=== PATIENT | female | born 1945 | race Caucasian/White ===

== ENCOUNTER → 2017-03-07 | Outpatient (CLI) | payer BC, MEDICARE ==
[2011-11-13 06:20] VITALS: BP 108/55
[~2017-03-07] MED LIST: CALCIUM1 CAP PO; CRESTOR10 MG PO; EPA FISH OIL1000 MG PO; PREMARIN 0.60.625 MG PO; ST. JOSEPH81 M2 PO
== END ==
LOC: MAMMO 08:22
DX: Z12.31 Encounter for screening mammogram for malignant neoplasm of breast (principal)
CPT/HCPCS: G0202

== ENCOUNTER → 2018-03-17 | Outpatient (CLI) | payer MEDICARE, OTHER ==
[2011-11-13 06:20] VITALS: BP 108/55
[2018-03-17 14:28] LABS: HEMATOCRIT 39.9 % (37.0-47.0); HEMOGLOBIN 13.1 g/dL (12.5-16.0); MEAN PLATELET VOLUME 9.5 fl (7.4-10.4); RED BLOOD COUNT 4.23 M/mm3 (4.10-5.30); RED CELL DISTRIBUTION WIDTH 12.2 % (11.5-14.5); WHITE BLOOD COUNT 11.2 K/mm3 (4.8-10.8)
[2018-03-17 14:34] LABS: ALBUMIN 4.1 g/dL (3.5-5.0); BUN/CREATININE RATIO 11.5 (6.0-26.0); CALCIUM 10.4 mg/dL (8.4-10.2); POTASSIUM 4.4 mmol/L (3.6-5.0); TOTAL BILIRUBIN 0.6 mg/dL (0.2-1.3); TOTAL PROTEIN 7.2 g/dL (6.3-8.2)
== END ==
LOC: LAB 14:01
PROVIDERS: Family Medicine
DX: Z00.00 Encounter for general adult medical examination without abnormal findings (principal); E78.5 Hyperlipidemia, unspecified; Z88.2 Allergy status to sulfonamides

== ENCOUNTER → 2018-03-25 | Outpatient (CLI) | payer MEDICARE, OTHER ==
[2011-11-13 06:20] VITALS: BP 108/55
[2018-03-25 14:01] LABS: EOS % 0.4 % (1.0-5.0); HEMATOCRIT 43.2 % (37.0-47.0); HEMOGLOBIN 14.5 g/dL (12.5-16.0); LYMPH# 3.4 (1.50-4.00); MEAN CELL VOLUME 90 fl (78-100); MEAN CORPUSCULAR HEMOGLOBIN 30 pg (27-31); MEAN CORPUSCULAR HGB CONC 34 g/dL (33-37); MEAN PLATELET VOLUME 9.3 fl (7.4-10.4); MONO # 0.5 (0.20-0.80); NEU # 4.9 (1.40-6.50); PLATELET COUNT 400 K/mm3 (130-400); RED CELL DISTRIBUTION WIDTH 12.1 % (11.5-14.5); WHITE BLOOD COUNT 8.9 K/mm3 (4.8-10.8)
[2018-03-25 14:30] LABS: URINE APPEARANCE CLEAR; URINE BILIRUBIN NEGATIVE (NEGATIVE); URINE BLOOD TRACE (NEGATIVE); URINE COLOR YELLOW; URINE GLUCOSE NEGATIVE (NEGATIVE); URINE KETONE NEGATIVE (NEGATIVE); URINE LEUKOCYTE ESTERASE TRACE (NEGATIVE); URINE NITRATE NEGATIVE (NEGATIVE); URINE PROTEIN(semi-quant) TRACE mg/dL (NEGATIVE); URINE UROBILINOGEN NORMAL (NORMAL)
[2018-03-25 14:52] LABS: ALBUMIN 4.7 g/dL (3.5-5.0); BUN/CREATININE RATIO 13.3 (6.0-26.0); CALCIUM 9.8 mg/dL (8.4-10.2); POTASSIUM 4.8 mmol/L (3.6-5.0); TOTAL BILIRUBIN 0.6 mg/dL (0.2-1.3); TOTAL PROTEIN 7.9 g/dL (6.3-8.2)
== END ==
LOC: LAB 13:44
PROVIDERS: Nurse Practitioner Family
DX: R10.9 Unspecified abdominal pain (principal); R30.0 Dysuria; R53.81 Other malaise; G25.89 Other specified extrapyramidal and movement disorders; R11.2 Nausea with vomiting, unspecified; R19.7 Diarrhea, unspecified; Z88.2 Allergy status to sulfonamides

== ENCOUNTER → 2018-03-31 | Outpatient (CLI) | payer MEDICARE, OTHER ==
[2011-11-13 06:20] VITALS: BP 108/55
== END ==
LOC: RAD 16:54
DX: N32.9 Bladder disorder, unspecified (principal)

== ENCOUNTER → 2018-04-09 | Outpatient (CLI) | payer MEDICARE, OTHER ==
[2011-11-13 06:20] VITALS: BP 108/55
== END ==
LOC: MAMMO 03-27 08:30
DX: Z12.31 Encounter for screening mammogram for malignant neoplasm of breast (principal)

== ENCOUNTER → 2018-08-18 | Outpatient (CLI) | payer MEDICARE, OTHER ==
[2011-11-13 06:20] VITALS: BP 108/55
[2018-08-18 17:10] LABS: EOS # 0.1 (0.04-0.40); EOS % 1.2 % (1.0-5.0); HEMATOCRIT 41.1 % (37.0-47.0); HEMOGLOBIN 13.6 g/dL (12.5-16.0); MEAN CELL VOLUME 96 fl (78-100); MEAN CORPUSCULAR HEMOGLOBIN 32 pg (27-31); MEAN CORPUSCULAR HGB CONC 33 g/dL (33-37); MEAN PLATELET VOLUME 9.1 fl (7.4-10.4); MONO # 0.6 (0.20-0.80); NEU # 6.4 (1.40-6.50); PLATELET COUNT 401 K/mm3 (130-400); RED CELL DISTRIBUTION WIDTH 12.1 % (11.5-14.5); WHITE BLOOD COUNT 11.8 K/mm3 (4.8-10.8)
[2018-08-18 17:13] LABS: ALBUMIN 4.1 g/dL (3.5-5.0); CALCIUM 9.4 mg/dL (8.4-10.2); TOTAL BILIRUBIN 0.5 mg/dL (0.2-1.3); TOTAL PROTEIN 7.1 g/dL (6.3-8.2)
[2018-08-18 17:34] LABS: LYMPH# 4.7 (1.50-4.00)
== END ==
LOC: LAB 16:35
PROVIDERS: Family Medicine
DX: D89.9 Disorder involving the immune mechanism, unspecified (principal); R19.7 Diarrhea, unspecified

== ENCOUNTER → 2018-09-10 | Outpatient (CLI) | payer MEDICARE, OTHER ==
[2011-11-13 06:20] VITALS: BP 108/55
== END ==
LOC: LAB 07:42
DX: R19.7 Diarrhea, unspecified (principal)

== ENCOUNTER → 2019-02-18 | Outpatient (CLI) | payer MEDICARE, OTHER ==
[2011-11-13 06:20] VITALS: BP 108/55
[2019-02-18 14:04] LABS: EOS # 0.1 (0.04-0.40); EOS % 0.9 % (1.0-5.0); HEMATOCRIT 41.2 % (37.0-47.0); HEMOGLOBIN 13.4 g/dL (12.5-16.0); MEAN CELL VOLUME 94 fl (78-100); MEAN CORPUSCULAR HEMOGLOBIN 31 pg (27-31); MEAN CORPUSCULAR HGB CONC 33 g/dL (33-37); MEAN PLATELET VOLUME 8.9 fl (7.4-10.4); MONO # 0.5 (0.20-0.80); PLATELET COUNT 376 K/mm3 (130-400); RED BLOOD COUNT 4.37 M/mm3 (4.10-5.30); RED CELL DISTRIBUTION WIDTH 12.1 % (11.5-14.5); WHITE BLOOD COUNT 9.6 K/mm3 (4.8-10.8)
[2019-02-18 14:16] LABS: ALBUMIN 4.1 g/dL (3.5-5.0); CALCIUM 9.6 mg/dL (8.4-10.2); POTASSIUM 4.9 mmol/L (3.6-5.0); TOTAL BILIRUBIN 0.6 mg/dL (0.2-1.3); TOTAL PROTEIN 7.1 g/dL (6.3-8.2)
== END ==
LOC: RAD 13:52
PROVIDERS: Family Medicine
DX: D89.9 Disorder involving the immune mechanism, unspecified (principal); J84.10 Pulmonary fibrosis, unspecified

== ENCOUNTER → 2019-09-22 | Outpatient (CLI) | payer MEDICARE, OTHER ==
[2011-11-13 06:20] VITALS: BP 108/55
[2019-09-22 10:14] LABS: EOS % 0.4 % (1.0-5.0); HEMATOCRIT 41.9 % (37.0-47.0); HEMOGLOBIN 13.5 g/dL (12.5-16.0); LYMPH# 2.8 (1.50-4.00); MEAN CELL VOLUME 95 fl (78-100); MEAN CORPUSCULAR HEMOGLOBIN 31 pg (27-31); MEAN CORPUSCULAR HGB CONC 32 g/dL (33-37); MEAN PLATELET VOLUME 9.2 fl (7.4-10.4); MONO # 0.5 (0.20-0.80); PLATELET COUNT 402 K/mm3 (130-400); RED BLOOD COUNT 4.42 M/mm3 (4.10-5.30); RED CELL DISTRIBUTION WIDTH 12.1 % (11.5-14.5); WHITE BLOOD COUNT 9.3 K/mm3 (4.8-10.8)
[2019-09-22 10:19] LABS: ALBUMIN 4.3 g/dL (3.4-4.8); POTASSIUM 4.1 mmol/L (3.5-5.1)
[2019-09-22 10:20] LABS: CALCIUM 10.3 mg/dL (8.3-10.5)
[2019-09-22 10:22] LABS: TOTAL PROTEIN 7.4 g/dL (6.2-8.1)
[2019-09-22 10:23] LABS: TOTAL BILIRUBIN 0.7 mg/dL (0.2-1.2)
== END ==
LOC: LAB 09:38
PROVIDERS: Family Medicine
DX: R19.7 Diarrhea, unspecified (principal)

== ENCOUNTER → 2019-09-23 | Outpatient (CLI) | payer MEDICARE, OTHER ==
[2011-11-13 06:20] VITALS: BP 108/55
== END ==
LOC: RAD 09:30
DX: N28.1 Cyst of kidney, acquired (principal); I70.0 Atherosclerosis of aorta; R91.1 Solitary pulmonary nodule
CPT/HCPCS: Q9967

== ENCOUNTER → 2019-09-24 | Outpatient (CLI) | payer MEDICARE, OTHER ==
[2011-11-13 06:20] VITALS: BP 108/55
== END ==
LOC: LAB 14:06
DX: R19.7 Diarrhea, unspecified (principal)

== ENCOUNTER → 2019-10-02 | Outpatient (CLI) | payer MEDICARE, OTHER ==
[2011-11-13 06:20] VITALS: BP 108/55
[2019-10-02 07:44] LABS: EOS # 0.1 (0.04-0.40); EOS % 0.7 % (1.0-5.0); HEMATOCRIT 39.9 % (37.0-47.0); HEMOGLOBIN 12.9 g/dL (12.5-16.0); LYMPH# 2.6 (1.50-4.00); MEAN CELL VOLUME 95 fl (78-100); MEAN CORPUSCULAR HEMOGLOBIN 31 pg (27-31); MEAN CORPUSCULAR HGB CONC 32 g/dL (33-37); MEAN PLATELET VOLUME 9.1 fl (7.4-10.4); MONO # 0.6 (0.20-0.80); NEU # 5.7 (1.40-6.50); PLATELET COUNT 402 K/mm3 (130-400); RED BLOOD COUNT 4.19 M/mm3 (4.10-5.30); RED CELL DISTRIBUTION WIDTH 12.1 % (11.5-14.5)
[2019-10-02 10:18] LABS: ERYTHROCYTE SEDIMENTATION RATE 42 mm/hr (0-30)
== END ==
LOC: RAD 07:26
PROVIDERS: Nurse Practitioner Family
DX: M19.072 Primary osteoarthritis, left ankle and foot (principal)

== ENCOUNTER → 2019-12-08 | Outpatient (CLI) | payer MEDICARE, OTHER ==
[2011-11-13 06:20] VITALS: BP 108/55
== END ==
LOC: LAB 11:32
DX: K52.9 Noninfective gastroenteritis and colitis, unspecified (principal)

== ENCOUNTER → 2019-12-14 | Outpatient (CLI) | payer MEDICARE, OTHER ==
[2011-11-13 06:20] VITALS: BP 108/55
== END ==
LOC: LAB 10:18
DX: K52.9 Noninfective gastroenteritis and colitis, unspecified (principal); R11.0 Nausea

== ENCOUNTER → 2020-01-14 | Day surgery (SDC) | payer MEDICARE, OTHER ==
[2011-11-13 06:20] VITALS: BP 108/55
== END ==
LOC: MSO 06:58
DX: K52.9 Noninfective gastroenteritis and colitis, unspecified (principal); K21.9 Gastro-esophageal reflux disease without esophagitis; F17.210 Nicotine dependence, cigarettes, uncomplicated; Z86.010 Personal history of colon polyps; Z88.2 Allergy status to sulfonamides; Z79.52 Long term (current) use of systemic steroids; Z85.51 Personal history of malignant neoplasm of bladder; Z85.42 Personal history of malignant neoplasm of other parts of uterus; Z90.710 Acquired absence of both cervix and uterus; Z90.49 Acquired absence of other specified parts of digestive tract; Z92.21 Personal history of antineoplastic chemotherapy
CPT/HCPCS: 00813; J2704; J3010; J7120

== ENCOUNTER → 2020-02-08 | Outpatient (CLI) | payer MEDICARE, OTHER ==
[2011-11-13 06:20] VITALS: BP 108/55
[2020-02-08 14:10] LABS: EOS # 0.1 (0.04-0.40); EOS % 1.2 % (1.0-5.0); HEMATOCRIT 35.3 % (37.0-47.0); HEMOGLOBIN 11.2 g/dL (12.5-16.0); LYMPH# 3.1 (1.50-4.00); MEAN CELL VOLUME 95 fl (78-100); MEAN CORPUSCULAR HEMOGLOBIN 30 pg (27-31); MEAN CORPUSCULAR HGB CONC 32 g/dL (33-37); MEAN PLATELET VOLUME 8.9 fl (7.4-10.4); MONO # 0.6 (0.20-0.80); NEU # 7.2 (1.40-6.50); PLATELET COUNT 426 K/mm3 (130-400); RED BLOOD COUNT 3.73 M/mm3 (4.10-5.30); RED CELL DISTRIBUTION WIDTH 12.8 % (11.5-14.5); WHITE BLOOD COUNT 11.1 K/mm3 (4.8-10.8)
[2020-02-08 14:15] LABS: ALBUMIN 3.7 g/dL (3.4-4.8); POTASSIUM 4.3 mmol/L (3.5-5.1)
[2020-02-08 14:16] LABS: CALCIUM 9.5 mg/dL (8.3-10.5)
[2020-02-08 14:17] LABS: TOTAL PROTEIN 6.3 g/dL (6.2-8.1)
[2020-02-08 14:19] LABS: TOTAL BILIRUBIN 0.4 mg/dL (0.2-1.2)
[2020-02-08 15:18] LABS: ERYTHROCYTE SEDIMENTATION RATE 57 mm/hr (0-30)
[2020-02-08 15:26] LABS: D-DIMER 1.39 mg/L FEU (0.15-0.50)
== END ==
LOC: LAB 13:46
PROVIDERS: Family Medicine
DX: R60.9 Edema, unspecified (principal)

== ENCOUNTER → 2020-03-31 | Outpatient (CLI) | payer MEDICARE, OTHER ==
[2011-11-13 06:20] VITALS: BP 108/55
== END ==
LOC: MAMMO 08:30
DX: Z12.31 Encounter for screening mammogram for malignant neoplasm of breast (principal)

== ENCOUNTER → 2020-04-15 | Outpatient (CLI) | payer MEDICARE, OTHER ==
[2011-11-13 06:20] VITALS: BP 108/55
[2020-04-15 15:46] LABS: EOS # 0.1 (0.04-0.40); EOS % 0.9 % (1.0-5.0); HEMATOCRIT 34.9 % (37.0-47.0); LYMPH# 2.7 (1.50-4.00); MEAN CELL VOLUME 94 fl (78-100); MEAN CORPUSCULAR HEMOGLOBIN 30 pg (27-31); MEAN CORPUSCULAR HGB CONC 32 g/dL (33-37); MEAN PLATELET VOLUME 8.7 fl (7.4-10.4); MONO # 0.6 (0.20-0.80); NEU # 4.7 (1.40-6.50); PLATELET COUNT 346 K/mm3 (130-400); RED CELL DISTRIBUTION WIDTH 12.6 % (11.5-14.5)
[2020-04-15 15:59] LABS: ALBUMIN 3.7 g/dL (3.4-4.8); POTASSIUM 4.8 mmol/L (3.5-5.1)
[2020-04-15 16:01] LABS: CALCIUM 9.4 mg/dL (8.3-10.5)
[2020-04-15 16:02] LABS: TOTAL PROTEIN 5.9 g/dL (6.2-8.1)
[2020-04-15 16:04] LABS: TOTAL BILIRUBIN 0.5 mg/dL (0.2-1.2)
== END ==
LOC: LAB 15:26
PROVIDERS: Family Medicine
DX: R60.9 Edema, unspecified (principal)

== ENCOUNTER → 2020-04-19 | Outpatient (CLI) | payer MEDICARE, OTHER ==
[2011-11-13 06:20] VITALS: BP 108/55
[~2020-04-19] MED LIST changes: +EFFER-K20 MEQ PO; +MELOXICAM7.5 MG PO; +OMEPRAZOLE40 MG PO; +ONDANSETRON HYDR4 MG PO; +SIMVASTATIN40 M1 PO
== END ==
LOC: RAD 16:33
DX: R60.0 Localized edema (principal)

== ENCOUNTER 2020-04-25 17:42 | Observation (INO) | payer MEDICARE, OTHER ==
[~2020-04-25] VITALS: Ht 172.7 cm; Wt 58.2 kg
[~2020-04-25 17:42] MED LIST changes: -EFFER-K20 MEQ PO; -MELOXICAM7.5 MG PO; -OMEPRAZOLE40 MG PO; -ONDANSETRON HYDR4 MG PO; -SIMVASTATIN40 M1 PO
[2020-04-25 18:14] LABS: EOS % 0.1 % (1.0-5.0); HEMATOCRIT 39.9 % (37.0-47.0); HEMOGLOBIN 13.5 g/dL (12.5-16.0); LYMPH# 2.4 (1.50-4.00); MEAN CELL VOLUME 88 fl (78-100); MEAN CORPUSCULAR HEMOGLOBIN 30 pg (27-31); MEAN CORPUSCULAR HGB CONC 34 g/dL (33-37); MEAN PLATELET VOLUME 9.2 fl (7.4-10.4); MONO # 0.6 (0.20-0.80); NEU # 5.8 (1.40-6.50); PLATELET COUNT 457 K/mm3 (130-400); RED BLOOD COUNT 4.52 M/mm3 (4.10-5.30); RED CELL DISTRIBUTION WIDTH 12.1 % (11.5-14.5); WHITE BLOOD COUNT 8.9 K/mm3 (4.8-10.8)
[2020-04-25 18:26] LABS: ALBUMIN 4.2 g/dL (3.4-4.8); POTASSIUM 3.6 mmol/L (3.5-5.1)
[2020-04-25 18:27] LABS: CALCIUM 10.2 mg/dL (8.3-10.5)
[2020-04-25 18:30] LABS: TOTAL BILIRUBIN 0.7 mg/dL (0.2-1.2)
[2020-04-25] MEDS ORDERED: SIMVASTATIN40 M1 PO (19:25)
[2020-04-25 19:27] VITALS: BP 117/59
[2020-04-25 21:28] VITALS: BP 127/65
[2020-04-25 21:29] LABS: URINE APPEARANCE CLEAR; URINE COLOR YELLOW
[2020-04-25 21:30] LABS: URINE BILIRUBIN NEGATIVE (NEGATIVE); URINE BLOOD TRACE (NEGATIVE); URINE GLUCOSE NEGATIVE (NEGATIVE); URINE KETONE 1+ (NEGATIVE); URINE LEUKOCYTE ESTERASE TRACE (NEGATIVE); URINE NITRATE NEGATIVE (NEGATIVE); URINE PROTEIN(semi-quant) NEGATIVE (NEGATIVE); URINE UROBILINOGEN NORMAL (NORMAL)
[2020-04-25 21:42] VITALS: BP 127/65
[2020-04-25] MEDS ORDERED: OMEPRAZOLE40 MG PO (23:26)
[2020-04-25] MEDS ORDERED: ONDANSETRON HYDR4 MG PO (23:28)
[2020-04-25] MEDS ORDERED: MELOXICAM7.5 MG PO (23:29)
[2020-04-26 01:21] VITALS: BP 147/66
[2020-04-26 05:45] VITALS: BP 146/67
[2020-04-26 06:04] LABS: EOS % 0.4 % (1.0-5.0); HEMATOCRIT 37.1 % (37.0-47.0); HEMOGLOBIN 12.5 g/dL (12.5-16.0); LYMPH# 2.7 (1.50-4.00); MEAN CELL VOLUME 89 fl (78-100); MEAN CORPUSCULAR HEMOGLOBIN 30 pg (27-31); MEAN CORPUSCULAR HGB CONC 34 g/dL (33-37); MEAN PLATELET VOLUME 9.1 fl (7.4-10.4); MONO # 0.7 (0.20-0.80); NEU # 4.9 (1.40-6.50); PLATELET COUNT 429 K/mm3 (130-400); RED BLOOD COUNT 4.19 M/mm3 (4.10-5.30); RED CELL DISTRIBUTION WIDTH 12.2 % (11.5-14.5); WHITE BLOOD COUNT 8.4 K/mm3 (4.8-10.8)
[2020-04-26 06:07] LABS: ALBUMIN 3.9 g/dL (3.4-4.8)
[2020-04-26 06:08] LABS: POTASSIUM 3.4 mmol/L (3.5-5.1)
[2020-04-26 06:09] LABS: CALCIUM 9.3 mg/dL (8.3-10.5)
[2020-04-26 06:10] LABS: TOTAL PROTEIN 6.2 g/dL (6.2-8.1)
[2020-04-26 06:12] LABS: TOTAL BILIRUBIN 0.7 mg/dL (0.2-1.2)
[2020-04-26 09:45] VITALS: BP 146/79
[2020-04-26] MEDS ORDERED: ONDANSETRON HYDR4 MG PO (11:56)
[2020-04-26] MEDS ORDERED: EFFER-K20 MEQ PO (11:57)
== END 2020-04-26 13:05 | disposition home or self-care (01) ==
LOC: ED 17:42 → MED/SURG 20:39
PROVIDERS: Nurse Practitioner Primary Care; ADMIT Nurse Practitioner
DX: E87.1 Hypo-osmolality and hyponatremia (principal); E86.0 Dehydration; R19.7 Diarrhea, unspecified; R11.2 Nausea with vomiting, unspecified; R10.9 Unspecified abdominal pain; N28.1 Cyst of kidney, acquired; J44.9 Chronic obstructive pulmonary disease, unspecified; Z79.899 Other long term (current) drug therapy; Z87.891 Personal history of nicotine dependence; Z79.82 Long term (current) use of aspirin; Z88.2 Allergy status to sulfonamides
CPT/HCPCS: G0378; J2405; J7030; Q9967

== ENCOUNTER → 2020-05-10 | Outpatient (CLI) | payer MEDICARE, OTHER ==
[2020-04-26 09:45] VITALS: BP 146/79
[~2020-05-10] MED LIST changes: +EFFER-K20 MEQ PO; +K-TAB20 MEQ PO; +MELOXICAM7.5 MG PO; +METOLAZONE5 MG PO; +NAPROXEN375 MG PO; +OMEPRAZOLE40 MG PO; +ONDANSETRON HYDR4 MG PO; +POTASSIUM CHLO20 ME4 PO; +SIMVASTATIN40 M1 PO; +WELLBUTRIN SR150 M2 PO
[2020-05-10 12:53] LABS: EOS # 0.1 (0.04-0.40); EOS % 0.8 % (1.0-5.0); HEMATOCRIT 34.7 % (37.0-47.0); HEMOGLOBIN 11.8 g/dL (12.5-16.0); LYMPH# 3.3 (1.50-4.00); MEAN CELL VOLUME 87 fl (78-100); MEAN CORPUSCULAR HEMOGLOBIN 30 pg (27-31); MEAN CORPUSCULAR HGB CONC 34 g/dL (33-37); MEAN PLATELET VOLUME 8.6 fl (7.4-10.4); MONO # 0.5 (0.20-0.80); NEU # 6.6 (1.40-6.50); PLATELET COUNT 364 K/mm3 (130-400); RED BLOOD COUNT 3.98 M/mm3 (4.10-5.30); RED CELL DISTRIBUTION WIDTH 11.8 % (11.5-14.5); WHITE BLOOD COUNT 10.5 K/mm3 (4.8-10.8)
[2020-05-10 12:59] LABS: ALBUMIN 3.9 g/dL (3.4-4.8)
[2020-05-10 13:00] LABS: POTASSIUM 3.2 mmol/L (3.5-5.1)
[2020-05-10 13:01] LABS: CALCIUM 9.5 mg/dL (8.3-10.5)
[2020-05-10 13:02] LABS: TOTAL PROTEIN 6.1 g/dL (6.2-8.1)
[2020-05-10 13:04] LABS: TOTAL BILIRUBIN 0.8 mg/dL (0.2-1.2)
== END ==
LOC: LAB 12:34
PROVIDERS: Family Medicine
DX: R60.9 Edema, unspecified (principal)

== ENCOUNTER 2020-05-11 11:59 | Emergency (ER) | payer MEDICARE, OTHER ==
[~2020-05-11] VITALS: Wt 61.6 kg
[~2020-05-11 11:59] MED LIST changes: -K-TAB20 MEQ PO; -METOLAZONE5 MG PO; -NAPROXEN375 MG PO; -POTASSIUM CHLO20 ME4 PO; -WELLBUTRIN SR150 M2 PO
[2020-05-11] MEDS ORDERED: METOLAZONE5 MG PO (12:36)
[2020-05-11] MEDS ORDERED: NAPROXEN375 MG PO (12:37)
[2020-05-11] MEDS ORDERED: WELLBUTRIN SR150 M2 PO (12:37)
[2020-05-11 12:54] LABS: EOS % 0.4 % (1.0-5.0); HEMATOCRIT 33.1 % (37.0-47.0); HEMOGLOBIN 11.2 g/dL (12.5-16.0); LYMPH# 2.4 (1.50-4.00); MEAN CELL VOLUME 87 fl (78-100); MEAN CORPUSCULAR HEMOGLOBIN 30 pg (27-31); MEAN CORPUSCULAR HGB CONC 34 g/dL (33-37); MEAN PLATELET VOLUME 8.2 fl (7.4-10.4); MONO # 0.6 (0.20-0.80); NEU # 6.9 (1.40-6.50); PLATELET COUNT 337 K/mm3 (130-400); RED BLOOD COUNT 3.79 M/mm3 (4.10-5.30); RED CELL DISTRIBUTION WIDTH 11.8 % (11.5-14.5); WHITE BLOOD COUNT 9.9 K/mm3 (4.8-10.8)
[2020-05-11 13:01] LABS: SODIUM 125 mmol/L (136-145)
[2020-05-11 13:02] LABS: CALCIUM 8.7 mg/dL (8.3-10.5); GLUCOSE 105 mg/dL (65-105)
[2020-05-11 13:04] LABS: CARBON DIOXIDE 29 mmol/L (23-31)
[2020-05-11 13:08] LABS: POTASSIUM 2.8 mmol/L (3.5-5.1)
[2020-05-11] MEDS ORDERED: K-TAB20 MEQ PO ×2 (15:02)
[2020-05-11] MEDS ORDERED: POTASSIUM CHLO20 ME4 PO (15:52)
[2020-05-11 16:01] VITALS: BP 130/64
== END 2020-05-11 15:57 | disposition home or self-care (01) ==
LOC: ED 11:59
PROVIDERS: Physician Assistant
DX: E87.1 Hypo-osmolality and hyponatremia (principal); E87.6 Hypokalemia; F17.210 Nicotine dependence, cigarettes, uncomplicated; Z79.82 Long term (current) use of aspirin; Z85.51 Personal history of malignant neoplasm of bladder; Z90.49 Acquired absence of other specified parts of digestive tract
CPT/HCPCS: J3480

== ENCOUNTER → 2020-05-12 | Outpatient (CLI) | payer MEDICARE, OTHER ==
[2020-05-11 16:01] VITALS: BP 130/64
[~2020-05-12] MED LIST changes: +K-TAB20 MEQ PO; +METOLAZONE5 MG PO; +NAPROXEN375 MG PO; +POTASSIUM CHLO20 ME4 PO; +WELLBUTRIN SR150 M2 PO
[2020-05-12 16:24] LABS: POTASSIUM 3.8 mmol/L (3.5-5.1)
[2020-05-12 16:25] LABS: CALCIUM 9.6 mg/dL (8.3-10.5)
== END ==
LOC: LAB 16:00
PROVIDERS: Family Medicine
DX: E87.1 Hypo-osmolality and hyponatremia (principal); E87.6 Hypokalemia

== ENCOUNTER → 2020-05-18 | Outpatient (CLI) | payer MEDICARE, OTHER ==
[2020-05-11 16:01] VITALS: BP 130/64
[~2020-05-18] MED LIST changes: +ASPIRIN E.C. 8181 MG
[2020-05-18 11:28] LABS: ALBUMIN 4.1 g/dL (3.4-4.8); POTASSIUM 4.4 mmol/L (3.5-5.1)
[2020-05-18 11:29] LABS: CALCIUM 9.7 mg/dL (8.3-10.5)
[2020-05-18 11:31] LABS: TOTAL PROTEIN 6.7 g/dL (6.2-8.1)
[2020-05-18 11:32] LABS: TOTAL BILIRUBIN 0.8 mg/dL (0.2-1.2)
== END ==
LOC: LAB 11:04
PROVIDERS: Family Medicine
DX: R60.9 Edema, unspecified (principal)

== ENCOUNTER 2020-05-23 12:46 | Emergency (ER) | payer MEDICARE, OTHER ==
[~2020-05-23 12:46] MED LIST changes: -ASPIRIN E.C. 8181 MG
[2020-05-23 13:46] LABS: EOS % 0.2 % (1.0-5.0); HEMATOCRIT 37.6 % (37.0-47.0); HEMOGLOBIN 12.7 g/dL (12.5-16.0); LYMPH# 3.1 (1.50-4.00); MEAN CELL VOLUME 89 fl (78-100); MEAN CORPUSCULAR HEMOGLOBIN 30 pg (27-31); MEAN CORPUSCULAR HGB CONC 34 g/dL (33-37); MEAN PLATELET VOLUME 8.8 fl (7.4-10.4); MONO # 0.7 (0.20-0.80); NEU # 7.2 (1.40-6.50); PLATELET COUNT 475 K/mm3 (130-400); RED BLOOD COUNT 4.22 M/mm3 (4.10-5.30); RED CELL DISTRIBUTION WIDTH 12.5 % (11.5-14.5); WHITE BLOOD COUNT 11.1 K/mm3 (4.8-10.8)
[2020-05-23 14:00] LABS: ALBUMIN 4.1 g/dL (3.4-4.8); POTASSIUM 3.4 mmol/L (3.5-5.1)
[2020-05-23 14:01] LABS: CALCIUM 9.1 mg/dL (8.3-10.5)
[2020-05-23 14:03] LABS: TOTAL PROTEIN 6.7 g/dL (6.2-8.1)
[2020-05-23 14:04] LABS: TOTAL BILIRUBIN 0.6 mg/dL (0.2-1.2)
[2020-05-23] MEDS ORDERED: ASPIRIN E.C. 8181 MG (16:25)
[2020-05-23 18:04] LABS: POTASSIUM 3.7 mmol/L (3.5-5.1)
[2020-05-23 18:06] LABS: CALCIUM 7.7 mg/dL (8.3-10.5)
[2020-05-23 18:42] VITALS: BP 129/54
== END 2020-05-23 18:55 | disposition home or self-care (01) ==
LOC: ED 12:46
PROVIDERS: Nurse Practitioner Primary Care
DX: E86.0 Dehydration (principal); J44.9 Chronic obstructive pulmonary disease, unspecified; K31.84 Gastroparesis; F17.210 Nicotine dependence, cigarettes, uncomplicated; Z79.82 Long term (current) use of aspirin; Z20.828 Contact with and (suspected) exposure to other viral communicable diseases
CPT/HCPCS: J1885; J7030

== ENCOUNTER → 2020-08-05 | Outpatient (CLI) | payer MEDICARE, OTHER ==
[~2020-08-05] MED LIST changes: +ASPIRIN E.C. 8181 MG
[2020-08-05 09:05] LABS: EOS % 0.2 % (1.0-5.0); HEMATOCRIT 35.1 % (37.0-47.0); HEMOGLOBIN 11.8 g/dL (12.5-16.0); LYMPH# 2.6 (1.50-4.00); MEAN CELL VOLUME 93 fl (78-100); MEAN CORPUSCULAR HEMOGLOBIN 31 pg (27-31); MEAN CORPUSCULAR HGB CONC 34 g/dL (33-37); MEAN PLATELET VOLUME 8.1 fl (7.4-10.4); PLATELET COUNT 478 K/mm3 (130-400); RED BLOOD COUNT 3.76 M/mm3 (4.10-5.30); RED CELL DISTRIBUTION WIDTH 14.1 % (11.5-14.5); WHITE BLOOD COUNT 13.1 K/mm3 (4.8-10.8)
[2020-08-05 09:25] LABS: ALBUMIN 3.9 g/dL (3.4-4.8)
[2020-08-05 09:27] LABS: CALCIUM 9.4 mg/dL (8.3-10.5); POTASSIUM 2.9 mmol/L (3.5-5.1)
[2020-08-05 09:28] LABS: TOTAL PROTEIN 6.4 g/dL (6.2-8.1)
[2020-08-05 09:30] LABS: TOTAL BILIRUBIN 0.7 mg/dL (0.2-1.2)
[2020-08-05 09:37] LABS: NEU # 9.4 (1.40-6.50)
== END ==
LOC: LAB 08:45
PROVIDERS: Physician Assistant
DX: E87.1 Hypo-osmolality and hyponatremia (principal); G25.81 Restless legs syndrome; E87.6 Hypokalemia

== ENCOUNTER → 2020-09-14 | Outpatient (CLI) | payer MEDICARE, OTHER | LOC: LAB 13:27 | DX: K52.9 Noninfective gastroenteritis and colitis, unspecified (principal) ==

== ENCOUNTER → 2020-09-29 | Day surgery (SDC) | payer MEDICARE, OTHER | LOC: MSO 09:34 | DX: K52.831 Collagenous colitis (principal); Z88.2 Allergy status to sulfonamides; K21.9 Gastro-esophageal reflux disease without esophagitis; Z79.52 Long term (current) use of systemic steroids; Z79.899 Other long term (current) drug therapy; E78.00 Pure hypercholesterolemia, unspecified; Z85.42 Personal history of malignant neoplasm of other parts of uterus; Z90.710 Acquired absence of both cervix and uterus; F17.210 Nicotine dependence, cigarettes, uncomplicated; Z91.030 Bee allergy status | CPT/HCPCS: 00811; J2704; J7120 ==

== ENCOUNTER → 2020-12-15 | Outpatient (CLI) | payer MEDICARE, OTHER ==
[2020-12-15 08:30] LABS: EOS % 0.2 % (1.0-5.0); HEMATOCRIT 36.9 % (37.0-47.0); HEMOGLOBIN 12.2 g/dL (12.5-16.0); LYMPH# 2.4 (1.50-4.00); MEAN CELL VOLUME 96 fl (78-100); MEAN CORPUSCULAR HEMOGLOBIN 32 pg (27-31); MEAN CORPUSCULAR HGB CONC 33 g/dL (33-37); MEAN PLATELET VOLUME 8.8 fl (7.4-10.4); MONO # 0.6 (0.20-0.80); NEU # 4.9 (1.40-6.50); PLATELET COUNT 405 K/mm3 (130-400); RED BLOOD COUNT 3.84 M/mm3 (4.10-5.30); RED CELL DISTRIBUTION WIDTH 12.7 % (11.5-14.5)
[2020-12-15 08:39] LABS: POTASSIUM 3.9 mmol/L (3.5-5.1)
[2020-12-15 08:40] LABS: CALCIUM 9.2 mg/dL (8.3-10.5)
[2020-12-15 08:41] LABS: TOTAL PROTEIN 6.1 g/dL (6.2-8.1)
[2020-12-15 08:43] LABS: TOTAL BILIRUBIN 0.6 mg/dL (0.2-1.2)
== END ==
LOC: LAB 08:13
PROVIDERS: Family Medicine
DX: Z00.00 Encounter for general adult medical examination without abnormal findings (principal); E78.5 Hyperlipidemia, unspecified

== ENCOUNTER → 2020-12-24 | Outpatient (CLI) | payer MEDICARE, OTHER | LOC: LAB 08:41 | DX: K52.831 Collagenous colitis (principal); A04.72 Enterocolitis due to Clostridium difficile, not specified as recurrent; K52.9 Noninfective gastroenteritis and colitis, unspecified ==

== ENCOUNTER 2021-01-17 18:09 | Observation (INO) | payer MEDICARE, OTHER ==
[2021-01-17 18:57] LABS: EOS # 0.1 (0.04-0.40); EOS % 0.6 % (1.0-5.0); HEMATOCRIT 37.3 % (37.0-47.0); HEMOGLOBIN 12.8 g/dL (12.5-16.0); LYMPH# 2.5 (1.50-4.00); MEAN CELL VOLUME 91 fl (78-100); MEAN CORPUSCULAR HEMOGLOBIN 31 pg (27-31); MEAN CORPUSCULAR HGB CONC 34 g/dL (33-37); MEAN PLATELET VOLUME 8.7 fl (7.4-10.4); MONO # 0.8 (0.20-0.80); NEU # 4.8 (1.40-6.50); PLATELET COUNT 453 K/mm3 (130-400); RED BLOOD COUNT 4.12 M/mm3 (4.10-5.30); RED CELL DISTRIBUTION WIDTH 11.5 % (11.5-14.5)
[2021-01-17 19:06] LABS: POTASSIUM 3.1 mmol/L (3.5-5.1)
[2021-01-17 19:07] LABS: CALCIUM 9.1 mg/dL (8.3-10.5)
[2021-01-17 19:08] LABS: TOTAL PROTEIN 6.9 g/dL (6.2-8.1)
[2021-01-17 19:10] LABS: TOTAL BILIRUBIN 0.7 mg/dL (0.2-1.2)
[2021-01-17 19:32] VITALS: BP 133/70
[2021-01-17] MEDS ORDERED: ROPINIROLE HYD0.5 MG PO (20:01)
[2021-01-17] MEDS ORDERED: LASIX40 M1 PO (20:02)
[2021-01-17] MEDS ORDERED: COLESTID 1GM1 G PO (20:02)
[2021-01-17] MEDS ORDERED: IMODIUM 2MG CAPS2 MG PO (20:03)
[2021-01-17] MEDS ORDERED: PROTONIX TR40 M1 PO (20:03)
[2021-01-17] MEDS ORDERED: PROMETHAZINE12.5 M5 PO (20:04)
[2021-01-17 21:29] VITALS: BP 148/74
[2021-01-17] MEDS ORDERED: REQUIP XL2 MG PO (22:00)
[2021-01-17 22:01] VITALS: BP 148/74
[2021-01-19 01:26] LABS: CALCIUM 8.1 mg/dL (8.3-10.5); POTASSIUM 3.9 mmol/L (3.5-5.1)
== END 2021-01-18 14:28 | disposition home or self-care (01) ==
LOC: ED 18:09 → MED/SURG 19:30
PROVIDERS: ADMIT Nurse Practitioner Family
DX: E86.0 Dehydration (principal); Z85.51 Personal history of malignant neoplasm of bladder; K21.9 Gastro-esophageal reflux disease without esophagitis; J44.9 Chronic obstructive pulmonary disease, unspecified; E78.5 Hyperlipidemia, unspecified; K31.84 Gastroparesis; Z90.710 Acquired absence of both cervix and uterus; Z90.49 Acquired absence of other specified parts of digestive tract; F17.210 Nicotine dependence, cigarettes, uncomplicated; Z88.2 Allergy status to sulfonamides; Z91.030 Bee allergy status
CPT/HCPCS: G0378; J3480; J7030

== ENCOUNTER 2021-01-23 13:40 | Observation (INO) | payer MEDICARE, OTHER ==
[~2021-01-23 13:40] MED LIST changes: +COLESTID 1GM1 G PO; +IMODIUM 2MG CAPS2 MG PO; +LASIX40 M1 PO; +PROMETHAZINE12.5 M5 PO; +PROTONIX TR40 M1 PO; +REQUIP XL2 MG PO; +ROPINIROLE HYD0.5 MG PO
[2021-01-23] MEDS ORDERED: K-TAB20 MEQ PO (14:49)
[2021-01-23] MEDS ORDERED: PHENERGAN 25 TA25 MG PO (14:50)
[2021-01-23 14:52] LABS: EOS % 0.4 % (1.0-5.0); HEMOGLOBIN 14.5 g/dL (12.5-16.0); LYMPH# 2.2 (1.50-4.00); MEAN CELL VOLUME 88 fl (78-100); MEAN CORPUSCULAR HEMOGLOBIN 31 pg (27-31); MEAN CORPUSCULAR HGB CONC 35 g/dL (33-37); MEAN PLATELET VOLUME 8.8 fl (7.4-10.4); MONO # 0.4 (0.20-0.80); NEU # 5.7 (1.40-6.50); PLATELET COUNT 391 K/mm3 (130-400); RED BLOOD COUNT 4.64 M/mm3 (4.10-5.30); RED CELL DISTRIBUTION WIDTH 11.1 % (11.5-14.5); WHITE BLOOD COUNT 8.4 K/mm3 (4.8-10.8)
[2021-01-23] MEDS ORDERED: VANCOMYCIN HYD125 MG PO (14:52)
[2021-01-23 15:23] LABS: ALBUMIN 4.5 g/dL (3.4-4.8)
[2021-01-23 15:25] LABS: CALCIUM 9.8 mg/dL (8.3-10.5)
[2021-01-23 15:26] LABS: TOTAL PROTEIN 7.8 g/dL (6.2-8.1)
[2021-01-23 15:28] LABS: TOTAL BILIRUBIN 0.6 mg/dL (0.2-1.2)
[2021-01-23] MEDS ORDERED: OMEPRAZOLE40 MG PO (18:39)
[2021-01-23] MEDS ORDERED: ZOCOR40 M1 PO (18:41)
[2021-01-23 21:53] VITALS: BP 94/58
[2021-01-24 02:16] VITALS: BP 113/69
[2021-01-24 06:03] VITALS: BP 119/78
[2021-01-24 06:20] LABS: CALCIUM 8.9 mg/dL (8.3-10.5)
[2021-01-24 06:21] LABS: RED BLOOD COUNT 3.97 M/mm3 (4.10-5.30); WHITE BLOOD COUNT 4.5 K/mm3 (4.8-10.8)
[2021-01-24 06:22] LABS: HEMATOCRIT 35.8 % (37.0-47.0); HEMOGLOBIN 12.5 g/dL (12.5-16.0); MEAN CELL VOLUME 90 fl (78-100); MEAN CORPUSCULAR HEMOGLOBIN 32 pg (27-31); MEAN CORPUSCULAR HGB CONC 35 g/dL (33-37); MEAN PLATELET VOLUME 8.9 fl (7.4-10.4); NEU # 3.3 (1.40-6.50); PLATELET COUNT 404 K/mm3 (130-400); RED CELL DISTRIBUTION WIDTH 11.1 % (11.5-14.5); TOTAL PROTEIN 6.6 g/dL (6.2-8.1)
[2021-01-24 06:23] LABS: LYMPH# 1.1 (1.50-4.00); MONO # 0.1 (0.20-0.80); TOTAL BILIRUBIN 0.5 mg/dL (0.2-1.2)
[2021-01-24 06:27] LABS: POTASSIUM 3.5 mmol/L (3.5-5.1)
[2021-01-24 06:32] LABS: ALBUMIN 3.9 g/dL (3.4-4.8)
[2021-01-24 10:20] VITALS: BP 124/76
[2021-01-24] MEDS ORDERED: POTASSIUM CHLO20 ME4 PO (14:02)
[2021-01-24] MEDS ORDERED: PROTONIX TR40 M1 PO (14:03)
[2021-01-24 14:07] VITALS: BP 124/72
[2021-01-24 18:10] VITALS: BP 132/63
[2021-01-24 22:00] VITALS: BP 115/66
[2021-01-25 01:03] VITALS: BP 123/66
[2021-01-25 06:02] LABS: HEMOGLOBIN 11.7 g/dL (12.5-16.0); MEAN CELL VOLUME 89 fl (78-100); MEAN CORPUSCULAR HEMOGLOBIN 32 pg (27-31); MEAN CORPUSCULAR HGB CONC 36 g/dL (33-37); WHITE BLOOD COUNT 12.6 K/mm3 (4.8-10.8)
[2021-01-25 06:03] LABS: MEAN PLATELET VOLUME 8.7 fl (7.4-10.4); PLATELET COUNT 394 K/mm3 (130-400); RED CELL DISTRIBUTION WIDTH 10.9 % (11.5-14.5)
[2021-01-25 06:07] VITALS: BP 114/64
[2021-01-25 06:08] LABS: CALCIUM 8.9 mg/dL (8.3-10.5)
[2021-01-25 06:15] LABS: MAGNESIUM 1.67 mg/dL (1.60-2.60)
[2021-01-25 06:25] LABS: LYMPHOCYTE 16 % (20-51); MONOCYTE 6 % (3-10); NEUTROPHILS 78 % (42-75)
[2021-01-25] MEDS ORDERED: PREDNISONE20 M1 PO (09:22)
[2021-01-25 10:20] VITALS: BP 155/80
== END 2021-01-25 12:18 | disposition home or self-care (01) ==
LOC: ED 13:40 → MED/SURG 16:19
PROVIDERS: Nurse Practitioner Family; ADMIT Nurse Practitioner
DX: R19.7 Diarrhea, unspecified (principal); E86.0 Dehydration; E87.1 Hypo-osmolality and hyponatremia; E87.6 Hypokalemia; Z85.51 Personal history of malignant neoplasm of bladder; K21.9 Gastro-esophageal reflux disease without esophagitis; K31.84 Gastroparesis; Z90.710 Acquired absence of both cervix and uterus; J44.9 Chronic obstructive pulmonary disease, unspecified; E78.5 Hyperlipidemia, unspecified; F17.210 Nicotine dependence, cigarettes, uncomplicated; Z88.2 Allergy status to sulfonamides; Z91.030 Bee allergy status
CPT/HCPCS: A9270-GY; G0378; J2930; J7030

== ENCOUNTER 2021-01-31 11:44 | Outpatient (RCR) | payer MEDICARE, OTHER ==
[2021-01-27 20:12] VITALS: BP 125/62
[2021-01-27 21:15] VITALS: BP 148/80
[2021-01-28 14:02] VITALS: BP 119/64
[2021-01-29 13:09] VITALS: BP 151/94
[2021-01-30 10:46] VITALS: BP 141/89
[~2021-01-31 11:44] MED LIST changes: +PHENERGAN 25 TA25 MG PO; +PREDNISONE20 M1 PO; +VANCOMYCIN HYD125 MG PO; +ZOCOR40 M1 PO
[2021-01-31 11:58] VITALS: BP 151/84
== END 2021-01-31 21:00 | disposition home or self-care (01) ==
LOC: AMSURD 11:44
DX: A04.72 Enterocolitis due to Clostridium difficile, not specified as recurrent (principal)
CPT/HCPCS: J2930

== ENCOUNTER → 2021-02-14 | Outpatient (CLI) | payer MEDICARE, OTHER ==
[2021-01-31 11:58] VITALS: BP 151/84
[~2021-02-14] MED LIST changes: +ACETAMINOPHEN-H1 TA2 PO; +ALPRAZOLAM0.25 MG PO; +ANORO ELLIPTA1 POW IH; +CALCIUM CARBON650 M2 PO; +DECADRON 4MG TAB4 MG; +PREDNISONE 5MG5 MG PO; +PREMARIN 0.3MG0.3 MG PO
[2021-03-01 16:21] LABS: CORTISOL, AM (0800) AMS
== END ==
LOC: LAB 07:58
PROVIDERS: Physician Assistant
DX: K52.831 Collagenous colitis (principal); Z86.19 Personal history of other infectious and parasitic diseases

== ENCOUNTER 2021-02-20 14:01 | Emergency (ER) | payer MEDICARE, OTHER ==
[~2021-02-20 14:01] MED LIST changes: -ACETAMINOPHEN-H1 TA2 PO; -ALPRAZOLAM0.25 MG PO; -ANORO ELLIPTA1 POW IH; -CALCIUM CARBON650 M2 PO; -DECADRON 4MG TAB4 MG; -PREDNISONE 5MG5 MG PO; -PREMARIN 0.3MG0.3 MG PO
[2021-02-20] MEDS ORDERED: PREDNISONE 5MG5 MG PO (14:14)
[2021-02-20] MEDS ORDERED: OMEPRAZOLE40 MG PO (14:15)
[2021-02-20 15:16] LABS: HEMATOCRIT 40.4 % (37.0-47.0); HEMOGLOBIN 14.3 g/dL (12.5-16.0); MEAN CELL VOLUME 88 fl (78-100); MEAN CORPUSCULAR HEMOGLOBIN 31 pg (27-31); MEAN CORPUSCULAR HGB CONC 35 g/dL (33-37); MEAN PLATELET VOLUME 8.6 fl (7.4-10.4); PLATELET COUNT 390 K/mm3 (130-400); RED BLOOD COUNT 4.59 M/mm3 (4.10-5.30); RED CELL DISTRIBUTION WIDTH 11.9 % (11.5-14.5); WHITE BLOOD COUNT 13.4 K/mm3 (4.8-10.8)
[2021-02-20 15:26] LABS: ALBUMIN 3.9 g/dL (3.4-4.8)
[2021-02-20 15:27] LABS: POTASSIUM 3.2 mmol/L (3.5-5.1)
[2021-02-20 15:28] LABS: CALCIUM 9.3 mg/dL (8.3-10.5)
[2021-02-20 15:29] LABS: TOTAL PROTEIN 6.4 g/dL (6.2-8.1)
[2021-02-20 15:31] LABS: TOTAL BILIRUBIN 1.1 mg/dL (0.2-1.2)
[2021-02-20 16:32] LABS: PROTHROMBIN TIME 9.3 SECONDS (9.0-12.0)
[2021-02-20 16:47] LABS: ACETAMINOPHEN < 1 ug/mL; ALCOHOL IN-HOUSE < 10 mg/dL (<10)
[2021-02-20 16:49] LABS: URINE APPEARANCE CLEAR; URINE COLOR YELLOW
[2021-02-20 16:50] LABS: URINE PROTEIN(semi-quant) TRACE mg/dL (NEGATIVE)
[2021-02-20 16:51] LABS: URINE BILIRUBIN NEGATIVE (NEGATIVE); URINE BLOOD NEGATIVE (NEGATIVE); URINE GLUCOSE 50 mg/dL mg/dL (NEGATIVE); URINE KETONE NEGATIVE (NEGATIVE); URINE LEUKOCYTE ESTERASE NEGATIVE (NEGATIVE); URINE NITRATE NEGATIVE (NEGATIVE); URINE UROBILINOGEN NORMAL (NORMAL); URINE WBC 0-1 /hpf (0-3)
[2021-02-20 17:06] LABS: D-DIMER 1.49 mg/L FEU (0.15-0.50)
[2021-02-20 17:14] LABS: LYMPHOCYTE 9 % (20-51); MONOCYTE 3 % (3-10); NEUTROPHILS 88 % (42-75)
[2021-02-20 20:35] VITALS: BP 126/79
== END 2021-02-20 20:35 | disposition short-term general hospital (02) ==
LOC: ED 14:01
PROVIDERS: Nurse Practitioner
DX: K85.90 Acute pancreatitis without necrosis or infection, unspecified (principal); E87.1 Hypo-osmolality and hyponatremia; E87.6 Hypokalemia; R59.1 Generalized enlarged lymph nodes; K21.9 Gastro-esophageal reflux disease without esophagitis; F17.210 Nicotine dependence, cigarettes, uncomplicated; Z85.51 Personal history of malignant neoplasm of bladder; Z90.49 Acquired absence of other specified parts of digestive tract; Z90.710 Acquired absence of both cervix and uterus; Z79.52 Long term (current) use of systemic steroids; Z88.2 Allergy status to sulfonamides; Z20.822 Contact with and (suspected) exposure to COVID-19
CPT/HCPCS: J7030

== ENCOUNTER → 2021-03-03 | Outpatient (CLI) | payer MEDICARE, OTHER ==
[2021-02-20 20:35] VITALS: BP 126/79
[~2021-03-03] MED LIST changes: +ACETAMINOPHEN-H1 TA2 PO; +ALPRAZOLAM0.25 MG PO; +ANORO ELLIPTA1 POW IH; +CALCIUM CARBON650 M2 PO; +DECADRON 4MG TAB4 MG; +PREDNISONE 5MG5 MG PO; +PREMARIN 0.3MG0.3 MG PO
[2021-03-03 12:27] LABS: EOS % 0.1 % (1.0-5.0); HEMATOCRIT 38.2 % (37.0-47.0); HEMOGLOBIN 12.6 g/dL (12.5-16.0); LYMPH# 2.2 (1.50-4.00); MEAN CELL VOLUME 96 fl (78-100); MEAN CORPUSCULAR HEMOGLOBIN 32 pg (27-31); MEAN CORPUSCULAR HGB CONC 33 g/dL (33-37); MONO # 0.8 (0.20-0.80); NEU # 10.5 (1.40-6.50); PLATELET COUNT 453 K/mm3 (130-400); RED BLOOD COUNT 3.98 M/mm3 (4.10-5.30); RED CELL DISTRIBUTION WIDTH 13.8 % (11.5-14.5); WHITE BLOOD COUNT 13.7 K/mm3 (4.8-10.8)
[2021-03-03 12:52] LABS: POTASSIUM 5.5 mmol/L (3.5-5.1)
[2021-03-03 12:53] LABS: CALCIUM 9.1 mg/dL (8.3-10.5)
[2021-03-03 12:54] LABS: TOTAL PROTEIN 6.8 g/dL (6.2-8.1)
[2021-03-03 12:56] LABS: TOTAL BILIRUBIN 0.7 mg/dL (0.2-1.2)
== END ==
LOC: LAB 11:54
PROVIDERS: Family Medicine
DX: C34.90 Malignant neoplasm of unspecified part of unspecified bronchus or lung (principal); R00.0 Tachycardia, unspecified

== ENCOUNTER 2021-03-13 10:10 | Emergency (ER) | payer MEDICARE, OTHER ==
[~2021-03-13 10:10] MED LIST changes: -ACETAMINOPHEN-H1 TA2 PO; -ALPRAZOLAM0.25 MG PO; -ANORO ELLIPTA1 POW IH; -CALCIUM CARBON650 M2 PO; -DECADRON 4MG TAB4 MG; -PREMARIN 0.3MG0.3 MG PO
[2021-03-13 11:07] LABS: HEMATOCRIT 30.2 % (37.0-47.0); HEMOGLOBIN 10.3 g/dL (12.5-16.0); MEAN CELL VOLUME 91 fl (78-100); MEAN CORPUSCULAR HEMOGLOBIN 31 pg (27-31); MEAN CORPUSCULAR HGB CONC 34 g/dL (33-37); MEAN PLATELET VOLUME 8.9 fl (7.4-10.4); PLATELET COUNT 183 K/mm3 (130-400); RED BLOOD COUNT 3.32 M/mm3 (4.10-5.30); RED CELL DISTRIBUTION WIDTH 12.6 % (11.5-14.5); WHITE BLOOD COUNT 2.5 K/mm3 (4.8-10.8)
[2021-03-13 11:14] LABS: ALBUMIN 3.4 g/dL (3.4-4.8)
[2021-03-13 11:16] LABS: CALCIUM 8.8 mg/dL (8.3-10.5)
[2021-03-13 11:17] LABS: TOTAL PROTEIN 5.5 g/dL (6.2-8.1)
[2021-03-13 11:18] LABS: LYMPHOCYTE 23 % (20-51); NEUTROPHILS 77 % (42-75)
[2021-03-13 11:19] LABS: TOTAL BILIRUBIN 1.4 mg/dL (0.2-1.2)
[2021-03-13 11:23] LABS: MAGNESIUM 1.1 mg/dL (1.60-2.60)
[2021-03-13] MEDS ORDERED: DECADRON 4MG TAB4 MG (12:38)
[2021-03-13] MEDS ORDERED: PREMARIN 0.3MG0.3 MG PO (12:39)
[2021-03-13] MEDS ORDERED: ANORO ELLIPTA1 POW IH (12:43)
[2021-03-13] MEDS ORDERED: ALPRAZOLAM0.25 MG PO (12:43)
[2021-03-13] MEDS ORDERED: CALCIUM CARBON650 M2 PO (12:43)
[2021-03-13] MEDS ORDERED: ACETAMINOPHEN-H1 TA2 PO (12:43)
[2021-03-13 12:44] LABS: URINE APPEARANCE CLEAR; URINE BILIRUBIN NEGATIVE (NEGATIVE); URINE BLOOD NEGATIVE (NEGATIVE); URINE COLOR YELLOW; URINE KETONE NEGATIVE (NEGATIVE); URINE LEUKOCYTE ESTERASE NEGATIVE (NEGATIVE); URINE NITRATE NEGATIVE (NEGATIVE); URINE PROTEIN(semi-quant) NEGATIVE (NEGATIVE); URINE UROBILINOGEN NORMAL (NORMAL)
[2021-03-13 15:33] VITALS: BP 95/74
== END 2021-03-13 15:17 | disposition short-term general hospital (02) ==
LOC: ED 10:10
PROVIDERS: Nurse Practitioner
DX: E87.1 Hypo-osmolality and hyponatremia (principal); E87.6 Hypokalemia; E83.42 Hypomagnesemia; K21.9 Gastro-esophageal reflux disease without esophagitis; Z85.51 Personal history of malignant neoplasm of bladder; Z85.118 Personal history of other malignant neoplasm of bronchus and lung; Z90.89 Acquired absence of other organs; Z90.710 Acquired absence of both cervix and uterus; Z88.2 Allergy status to sulfonamides
CPT/HCPCS: J2405; J3475; J7030